=== PATIENT | female | born 1980 | race Two or more races ===

== ENCOUNTER 2016-11-25 12:04 | Emergency (ER) | payer OTHER ==
[2016-11-25 12:11] VITALS: BP 118/76; PULSE 72; TEMP 98.2; BMI 25.8
--- NOTE | 2016-11-25 12:40 | PDOC ---
History of Present Illness - General History Source: Patient Exam Limitations: No Limitations - History of Present Illness Initial Comments: 11/25/16 12:44 The patient is a 36-year-old woman, , currently 4 weeks , with no past medical history who presents to the emergency department via walk-in for further evaluation vomiting. She admits of experiencing morning sickness symptoms of nausea, lightheadedness and vomiting. She expresses concern, as she now has a loss of appetite, since she vomits everything she eats. Her menses are irregular at baseline and she does not recall her last menstrual period. She went to [address] [place] [address], last week, when a urine test was performed and confirmed her . She has yet to follow up with an Technician. No fever, chills, weakness. No chest pain, headaches, dizziness, palpitations, loss of consciousness. No abdominal pain. No urinary complaints. No cough, shortness of breath. No vaginal discharge/bleeding. Allergies: None Known Past Surgical History:Ovarian cysts (removal; approximately 8 years ago) Social History: Never smoked. No ETOH and recreational drug use. <Lolis Zepeda - Last Filed: 11/25/16 12:53> <Andrew Santoyo - Last Filed: 11/25/16 13:36> - General Chief Complaint: Lightheaded Stated Complaint: DIZZINESS, (4 WKS ) Time Seen by Provider: 11/25/16 12:35 Past History <Lolis Zepeda - Last Filed: 11/25/16 12:53> - Psycho/Social/Smoking Cessation Hx Suicidal Ideation: No Smoking History: Never smoked Information on smoking cessation initiated: No <Andrew Santoyo - Last Filed: 11/25/16 13:36> - Past Medical History Allergies/Adverse Reactions: Allergies Allergy/AdvReac Type Severity Reaction Status Date / Time No Known Allergies Allergy Verified 11/25/16 12:11 Home Medications: Ambulatory Orders Metoclopramide HCl [Reglan] 10 mg PO BID PRN #7 tablet 11/25/16 Review of Systems - Review of Systems Constitutional: No: Chills, Fever HEENTM: No: Nose Congestion, Throat Pain, Throat Swelling Respiratory: No: Cough, Shortness of Breath Cardiac (ROS): No: Chest Pain, Edema, Lightheadedness, Palpitations ABD/GI: Yes: Nausea. No: Diarrhea, Vomiting : No: Dysuria, Frequency Musculoskeletal: No: Muscle Pain Neurological: No: Headache All Other Systems: Reviewed and Negative <Andrew Santoyo - Last Filed: 11/25/16 13:36> *Physical Exam - Vital Signs Last Vital Signs Temp Pulse Resp BP Pulse Ox 98.2 F 72 18 118/76 99 11/25/16 12:06 11/25/16 12:06 11/25/16 12:06 11/25/16 12:06 11/25/16 12:06 - Physical Exam Comments: 11/25/16 12:51 GENERAL: The patient is awake, alert, and fully oriented, in no acute distress. HEAD: Normal with no signs of trauma. EYES: Pupils equal, round and reactive to light, extraocular movements intact, sclera anicteric, conjunctiva clear with no pallor. ENT: Ears normal, nares patent, oropharynx clear without exudates. Moist mucous membranes. NECK: Normal range of motion, supple without lymphadenopathy, JVD, or masses. LUNGS: Breath sounds equal, clear to auscultation bilaterally. No wheeze/ crackles. HEART: Regular rate and rhythm, normal S1 and S2 without murmur or rub. ABDOMEN: Soft/nontender/nondistended. BS wnl. No guarding or rebound. No palpable masses. No hepatosplenomegaly. EXTREMITIES: Normal range of motion, no edema. No clubbing or cyanosis. No cords, erythema, or tenderness. NEUROLOGICAL: Cranial nerves II through XII grossly intact. Normal speech. PSYCH: Normal mood, normal affect. SKIN: Warm, Dry, normal turgor, no rashes or lesions noted. <Lolis Zepeda - Last Filed: 11/25/16 12:53> - Vital Signs Last Vital Signs Temp Pulse Resp BP Pulse Ox 98.2 F 72 18 118/76 99 11/25/16 12:06 11/25/16 12:06 11/25/16 12:06 11/25/16 12:06 11/25/16 12:06 <Andrew Santoyo - Last Filed: 11/25/16 13:36> Medical Decision Making - Medical Decision Making 11/25/16 13:04 A portion of this note was documented by scribe services under my direction. I have reviewed the details of the note, within reason, and agree with the documentation with the following case summary and management plan written by me. Healthy 36-year-old female LMP unclear due to irregular menses, recently found out she was from home test and after being seen at [facility] last week, now presents for evaluation for intermittent nausea. No actual vomiting, states she wants a medications because the nausea makes her salivate. She is otherwise tolerating by mouth, denies any syncope or cardiopulmonary complaints, denies any vaginal bleeding or discharge, denies any pelvic pain. Vital signs normal. Well-appearing talking on her cell phone Ambulating in the ED Her exam is completely normal without abdominal or pelvic tenderness 36-year-old female with symptoms of , there are no concerning signs or symptoms to suggest any acute abnormality or that would require emergent workup. Will check urinalysis and confirm Will prescribe Reglan as needed only for severe nausea until she sees STITCH SEPARATOR Discussed return criteria. She is being followed by [facility], will seek STITCH SEPARATOR follow-up 11/25/16 13:23 Urinalysis normal, no glucose, no ketones, no infection or blood. Urine confirmed positive. Will discharge with OB follow-up, understands return criteria. <Andrew Santoyo - Last Filed: 11/25/16 13:36> *DC/Admit/Observation/Transfer - Attestations Scribe Attestion: 11/25/16 12:52 Documentation prepared by Lolis Zepeda, acting as medical record specialist for Andrew Santoyo MD. <Lolis Zepeda - Last Filed: 11/25/16 12:53> <Andrew Santoyo - Last Filed: 11/25/16 13:36> Diagnosis at time of Disposition: First trimester - Discharge Dispostion Disposition: HOME Condition at time of disposition: Stable - Prescriptions Prescriptions: Metoclopramide HCl [Reglan] 10 mg PO BID PRN #7 tablet PRN Reason: Nausea - Referrals Referrals: Shmuel Roman MD [Staff Physician] - - Patient Instructions Printed Discharge Instructions: Managing Symptoms of Additional Instructions: Activity as tolerated. Stay hydrated. A urinalysis today shows that you are but no other concerning findings. Your symptoms are normal and expected during . Continue follow-up at [address] [place] [address] and make an appointment with an STITCH SEPARATOR as soon as possible. Consider calling Dr. Roman for an appointment. You can take Reglan as prescribed as needed for severe nausea. Return to the emergency department for any new or concerning symptoms, particularly pain, bleeding, fevers or chills
[2016-11-25 13:22] LABS: URINE APPEARANCE CLEAR; URINE BILIRUBIN NEGATIVE (NEGATIVE); URINE BLOOD NEGATIVE (NEGATIVE); URINE COLOR LTYELLOW; URINE GLUCOSE (UA) NEGATIVE (NEGATIVE); URINE KETONE NEGATIVE (NEGATIVE); URINE LEUK ESTERASE NEGATIVE (NEGATIVE); URINE NITRITE NEGATIVE (NEGATIVE); URINE PROTEIN NEGATIVE (NEGATIVE); URINE UROBILINOGEN NEGATIVE E.U./dl (0.2-1.0)
== END 2016-11-25 14:26 | disposition home or self-care (01) ==
LOC: JER 12:04
DX: O26.891 Other specified pregnancy related conditions, first trimester (principal); R11.0 Nausea; Z3A.01 Less than 8 weeks gestation of pregnancy
CPT/HCPCS: 81003; 84703; 99281-25

== ENCOUNTER 2017-07-01 05:45 | Inpatient (IN) | payer OTHER ==
[2017-07-01] MEDS ORDERED: DEXTROSE 5%-LACTATED RINGERS 1,000 ML IV SCH (06:10)
[2017-07-01 06:44] LABS: BASOPHIL 0.1 % (0-2.0); EOSINOPHIL 0.7 % (0-4.5); MCH 31.9 pg (25.7-33.7); MCHC 33.5 g/dl (32.0-36.0); MEAN CELL VOLUME 95.3 fl (80-96); MEAN PLT VOLUME 8.7 fl (7.5-11.1); NEUTROPHILS 77.3 % (42.8-82.8); PLATELET COUNT 193 K/MM3 (134-434); RDW 13.6 % (11.6-15.6); WHITE BLOOD COUNT 12.6 K/mm3 (4.0-10.0)
[2017-07-01 07:07] LABS: ANION GAP 12 (8-16); CALCIUM 8.6 mg/dL (8.5-10.1); CO2 22 mmol/L (21-32); CREATININE 0.7 mg/dL (0.55-1.02); GLUCOSE,RANDOM 84 mg/dL (74-106); INR 0.94 (0.82-1.09); PROTHROMBIN TIME (PATIENT) 10.6 SEC (9.98-11.88)
[2017-07-01 07:10] LABS: ACTIVATED PTT 32.7 SECONDS (26.9-34.4)
[2017-07-01 07:14] VITALS: BMI 30.9
[2017-07-01] MEDS ORDERED: PROMETHAZINE HCL 25 MG/1 ML VIAL IVPUSH ONE (07:40)
[2017-07-01] MEDS ORDERED: BUTORPHANOL TARTRATE 1 MG/ML VIAL IVPUSH ONE (07:40)
--- NOTE | 2017-07-01 09:14 | HP ---
Past Medical History - Admission Chief Complaint: Pain in labor History of Present Illness: 36 yo @ 39 weeks gestation, admitted for labor pain. History Source: Patient Limitations to Obtaining History: No Limitations - Past Medical History ...: 2 ...Para: 1 ...Term: 1 ...: 0 ...Spon : 0 ...Induced : 0 ...Multiple Gestation: 0 ...LMP: 10/20/16 ... Weeks Gestation by Dates: 40.1 ...EDC by Dates: 06/30/17 ...EDC by Sono: 07/04/17 - Past Surgical History Past Surgical History: Yes: None Hx Myomectomy: No Hx Transabdominal Cerclage: No - Smoking History Smoking history: Never smoked Have you smoked in the past 12 months: No - Alcohol/Substance Use Hx Alcohol Use: No History of Substance Use: reports: None - Social History Usual Living Arrangement: Yes: With Significant Other History of Recent Travel: No Home Medications - Allergies Allergies/Adverse Reactions: Allergies Allergy/AdvReac Type Severity Reaction Status Date / Time No Known Allergies Allergy Verified 11/25/16 12:11 - Home Medications Home Medications: Ambulatory Orders Metoclopramide HCl [Reglan] 10 mg PO BID PRN #7 tablet 11/25/16 Family Disease History - Family Disease History Family History: Unremarkable Review of Systems - Review of Systems Constitutional: reports: No Symptoms Eyes: reports: No Symptoms HENT: reports: No Symptoms Neck: reports: No Symptoms Cardiovascular: reports: No Symptoms Respiratory: reports: No Symptoms Gastrointestinal: reports: No Symptoms Genitourinary: reports: Pain Musculoskeletal: reports: No Symptoms Integumentary: reports: No Symptoms Neurological: reports: No Symptoms Endocrine: reports: No Symptoms Hematology/Lymphatic: reports: No Symptoms Psychiatric: reports: No Symptoms Pain Intensity: 8 Physical Exam - Maternity Vital Signs: Vital Signs Temperature 97.4 F L 07/01/17 07:00 Pulse Rate 81 07/01/17 07:00 Respiratory Rate 20 07/01/17 07:00 Blood Pressure 108/44 07/01/17 07:00 O2 Sat by Pulse Oximetry (%) Constitutional: Yes: Well Nourished Eyes: Yes: Conjunctiva Clear HENT: Yes: Atraumatic Neck: Yes: Supple, Trachea Midline Cardiovascular: Yes: Regular Rate and Rhythm Lungs: Clear to auscultation - Abdominal Exam/OB Number of Fetuses: Single Presentation: Vertex Contractions: Yes Regularity: Irregular Intensity: Mod/Strong - Vaginal Exam/OB Dilatation (cm): 4 Effacement (%): 100 Amniotic Membrane Status: Intact Station: -1 - Physical Exam ...Motor Strength: WNL Psychiatric: Yes: Alert, Oriented - Labs Lab Results: CBC, BMP 07/01/17 06:30 07/01/17 06:30 Problem List - Problems (1) Pain during labor Code(s): O99.89 - OTH DISEASES AND CONDITIONS COMPL PREG/CHLDBRTH; R52 - PAIN, UNSPECIFIED Assessment/Plan Active labor Analgesia as needed Anticipate
[2017-07-01] MEDS ORDERED: OXYTOCIN 15 UNITS/ LR 250 ML 15 UNIT/250 ML INFUS.BAG IVPB SCH (09:15)
[2017-07-01] MEDS ORDERED: ELECTROLYTE-148 SOLN 1,000 ML IV SCH (09:25)
[2017-07-01] MEDS ORDERED: FENTANYL/BUPIVACAINE/NS/PF - PCEA - 50 ML DISP.SYRIN EP SCH (11:45)
[2017-07-01 13:06] LABS: VENOUS BLOOD GAS HCO3 24.4 meq/L (19-25); VENOUS PH 7.3 (7.32-7.42)
[2017-07-01 13:14] LABS: ARTERIAL BLD GAS O2 SATURATION 32.5 % (90-98.9); ARTERIAL BLOOD GAS BASE EXCESS -3.8 meq/l (-2-2); ARTERIAL BLOOD GAS HCO3 25.7 meq/L (22-26); ARTERIAL BLOOD GAS PO2 20.7 mmHg (80-100); ARTERIAL BLOOD GAS pH 7.21 (7.35-7.45)
[2017-07-01] MEDS ORDERED: WITCH HAZEL 50% (TUCKS) 40 PAD/JAR PAD TP PRN (13:15)
[2017-07-01] MEDS ORDERED: METHYLERGONOVINE MALEATE 0.2 MG/1 ML AMP IM PRN (13:15)
[2017-07-01] MEDS ORDERED: oxyCODONE HCL 5 MG TABLET PO PRN (13:15)
[2017-07-01] MEDS ORDERED: D5W-LR W/ 20 UNITS OXYTOCIN 20 UNIT/1,000 ML INFUS.BAG IV SCH (13:15)
[2017-07-01] MEDS ORDERED: ACETAMINOPHEN 325 MG TABLET (FP) PO PRN (13:15)
[2017-07-01] MEDS ORDERED: BISACODYL 10 MG SUPP.RECT RC PRN (13:15)
[2017-07-01] MEDS ORDERED: BENZOCAINE 28 GM HEMORRHOIDAL OINTMENT TP PRN (13:15)
[2017-07-01] MEDS ORDERED: BENZOCAINE 20% 57 GM BOTTLE TP PRN (13:15)
[2017-07-01] MEDS ORDERED: OXYTOCIN 20 UNITS in 0.9% NS 20 UNIT/1,000 ML INFUS.BAG IV SCH (16:45)
[2017-07-01] MEDS: FERROUS SO4 325 MG TABLET (FP) PO SCH (22:14)
[2017-07-02 07:33] LABS: BASOPHIL 0.1 % (0-2.0); EOSINOPHIL 0.7 % (0-4.5); MCH 32.2 pg (25.7-33.7); MCHC 33.9 g/dl (32.0-36.0); MEAN CELL VOLUME 94.9 fl (80-96); MEAN PLT VOLUME 8.8 fl (7.5-11.1); NEUTROPHILS 75.8 % (42.8-82.8); PLATELET COUNT 174 K/MM3 (134-434); RDW 13.7 % (11.6-15.6); WHITE BLOOD COUNT 15.2 K/mm3 (4.0-10.0)
[2017-07-02] MEDS: FERROUS SO4 325 MG TABLET (FP) PO SCH ×2 (09:28→22:02)
[2017-07-02] MEDS: PRENATAL VITAMINS W/ FOLIC ACID TABLET (FP) PO SCH (09:28)
[2017-07-02] MEDS ORDERED: DIPHTH,PERTUSS(ACELL),TET 0.5 ML DISP.SYRIN IM ONE (10:00)
[2017-07-02] MEDS ORDERED: FLU VACCINE QUAD 60 MCG/0.5 ML (MDV 17-18) IM ONE (10:00)
--- NOTE | 2017-07-02 10:11 | PN ---
Post Progress Note - Subjective Subjective: c/o cramps, scale 6/10 Post Day: 1 Type of Delivery: Vital Signs: Vital Signs Temperature 98.4 F 07/02/17 02:00 Pulse Rate 88 07/02/17 02:00 Respiratory Rate 20 07/02/17 02:00 Blood Pressure 122/73 07/02/17 02:00 O2 Sat by Pulse Oximetry (%) 100 07/01/17 13:15 Breast Exam: Yes: Soft. No: Engorged Uterus: Yes: Fundus Firm, Fundus below umbilicus, Non-tender Lochia: Yes: Rubra Lochia, amount: Moderate Extremities: Yes: Calves non-tender Perineum: Yes: Intact Activity: Ambulating - Labs Labs: CBC WBC 15.2 K/mm3 (4.0-10.0) H 07/02/17 06:30 RBC 3.95 M/mm3 (3.60-5.2) 07/02/17 06:30 Hgb 12.7 GM/dL (10.7-15.3) 07/02/17 06:30 Hct 37.5 % (32.4-45.2) 07/02/17 06:30 MCV 94.9 fl (80-96) 07/02/17 06:30 MCH 32.2 pg (25.7-33.7) 07/02/17 06:30 MCHC 33.9 g/dl (32.0-36.0) 07/02/17 06:30 RDW 13.7 % (11.6-15.6) 07/02/17 06:30 Plt Count 174 K/MM3 (134-434) 07/02/17 06:30 MPV 8.8 fl (7.5-11.1) 07/02/17 06:30 Neutrophils % 75.8 % (42.8-82.8) 07/02/17 06:30 Lymphocytes % 15.0 % (8-40) 07/02/17 06:30 Monocytes % 8.4 % (3.8-10.2) 07/02/17 06:30 Eosinophils % 0.7 % (0-4.5) 07/02/17 06:30 Basophils % 0.1 % (0-2.0) 07/02/17 06:30 Assessment/Plan stable. Plan discharge tomorrow.
[2017-07-02] MEDS: IBUPROFEN 600 MG TABLET (FP) PO PRN (16:09)
[2017-07-02] MEDS ORDERED: SENNOSIDES/DOCUSATE COMBO (SENNA PLUS) TABLET (UD) PO PRN (22:00)
[2017-07-02 23:09] VITALS: PULSE 87; TEMP 98.7
--- NOTE | 2017-07-03 05:40 | DS ---
Physical Exam-[employer] Vital Signs: Vital Signs Temperature 98.7 F 07/02/17 22:00 Pulse Rate 87 07/02/17 22:00 Respiratory Rate 20 07/02/17 22:00 Blood Pressure 120/61 07/02/17 22:00 O2 Sat by Pulse Oximetry (%) 100 07/01/17 13:15 Constitutional: Yes: Well Nourished Eyes: Yes: Conjunctiva Clear HENT: Yes: Atraumatic Neck: Yes: Supple Cardiovascular: Yes: Regular Rate and Rhythm Respiratory: Yes: Regular Gastrointestinal: Yes: Normal Bowel Sounds Pelvis: Yes: WNL External Genitalia: Yes: Normal Vaginal Exam: Yes: Normal Cervix: Yes: Normal Uterus: Yes: Firm ....Post : Yes: Uterus firm, Moderate lochia serosa Breast(s): Yes: WNL Neurological: Yes: Alert, Oriented ...Motor Strength: WNL Psychiatric: Yes: Alert, Oriented Labs: CBC, BMP 07/02/17 06:30 07/01/17 06:30 Delivery - Delivery Type of Anesthesia: Epidural Episiotomy/Laceration: None EBL (cc): 300 Delivery, Single - Stages of Labor Date 1st Stage Initiatied: 07/01/17 Time 1st Stage Initiated: 07:00 Date 2nd Stage Initiated: 07/01/17 Time 2nd Stage Initiated: 11:15 Date of Delivery: 07/01/17 Time of Delivery: 12:21 Time Placenta Delivered: 12:23 - Condition of Unit 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 Gender: Female Weight: 7 lb 12 oz Position: Left, OA Total Hours ROM (Hrs/Mins): 1hrs/23mins - 1 Minute Total Score: 9 5 Minutes Total Score: 9 - [place] Feeding Plan Initial Plan: Elected not to breastfeed exclusively throughout hospitalization Discharge Summary Reason For Visit: LABOR ADMIT Current Active Problems Pain during labor (Acute) Status post normal delivery (Acute) Procedures: Principal: Normal spontaneous vaginal delivery Hospital Course: Routine care Condition: Good - Instructions Diet, Activity, Other Instructions: Regular diet No douching, no sexual intercourse x 6 weeks F/U in clinic in 6 weeks Disposition: HOME - Home Medications Comprehensive Discharge Medication List: Ambulatory Orders NK [No Known Home Medication] 10/21/14 Metoclopramide HCl [Reglan] 10 mg PO BID PRN #7 tablet 11/25/16
[2017-07-03 07:42] VITALS: BP 122/77
[2017-07-03] MEDS: IBUPROFEN 600 MG TABLET (FP) PO PRN (09:11)
[2017-07-03] MEDS: FERROUS SO4 325 MG TABLET (FP) PO SCH (09:12)
[2017-07-03] MEDS: PRENATAL VITAMINS W/ FOLIC ACID TABLET (FP) PO SCH (09:12)
== END 2017-07-03 11:50 | disposition home or self-care (01) | DRG 560 ==
LOC: JDEL 05:45 → JLDR 06:10 → J3W 14:30
PROVIDERS: ADMIT Obstetrics & Gynecology; ATTEND Obstetrics & Gynecology
PROC: 10E0XZZ Delivery of Products of Conception, External Approach (ICD-10-PCS; principal; 2017-07-01)
DX: O48.0 Post-term pregnancy (principal); Z3A.40 40 weeks gestation of pregnancy; Z37.0 Single live birth
CPT/HCPCS: 36415; 36600; 59409; 80048; 82803; 85025; 85610; 85730; 86593; 86850; 86900; 86901; 90688; 90715